=== PATIENT | female | born 1970 | race African-American/Black ===

== ENCOUNTER 2018-07-04 14:21 | Emergency (ER) | payer OTHER ==
[2018-07-04 14:30] VITALS: BP 168/92
--- NOTE | 2018-07-04 14:46 | UC ---
Respiratory Complaint HPI - HPI Summary HPI Summary: Patient is a 47 year old woman, who present today with sinus congestion and headache for past 1 week .she reports that She had a similar episode in May, that resolved with antibiotics/ She has a grandson with similar symptoms and possible sick contacts at work. She measured her temperature at home and last night it was 99.9F. There is some mild cough which is nonproductive. Points to maxillary area where she notices most congestion and pain, avoiding bending. She has been using Sudafed and NyQuil without much relief Denies any chest pain or shortness of breath . Denies any abdominal pain , nausea or vomiting , diarrhea or constipation. - History of Current Complaint Chief Complaint: UCGeneralIllness Stated Complaint: SINUS COMPLAINT Time Seen by Provider: 07/04/18 14:34 Hx Obtained From: Patient Pain Intensity: 3 - Allergies/Home Medications Allergies/Adverse Reactions: Allergies Allergy/AdvReac Type Severity Reaction Status Date / Time No Known Allergies Allergy Verified 07/04/18 14:31 Home Medications: Home Medications Ibuprofen TAB* [Advil TAB*] 400 mg PO Q6H PRN 07/04/18 [History Confirmed ] Nyquil 1 dose PO BEDTIME PRN 07/04/18 [History] Pseudoephedrine HCl [Sudafed] 30 mg PO PRN 07/04/18 [History] PMH/Surg Hx/FS Hx/Imm Hx - Additional Past Medical History Additional PMH: Hypertension, she has been off meds due to lack of insurance Prior sinus infection Previously Healthy: Yes - Surgical History Surgical History: Yes Surgery Procedure, Year, and Place: TOTAL HYSTERECTOMY, after ovaries removed 4 yrs earlier, intestinal repair - Social History Alcohol Use: None Substance Use Type: None Smoking Status (MU): Light Every Day Tobacco Smoker Type: Cigarettes Amount Used/How Often: <1/2 PPD Have You Smoked in the Last Year: Yes Review of Systems All Other Systems Reviewed And Are Negative: Yes Constitutional: Positive: Fever, Fatigue Skin: Positive: Negative Eyes: Positive: Negative ENT: Positive: Sinus Congestion, Sinus Pain/Tenderness - Maxillary and frontal bilaterally, Other - Postnasal drip Respiratory: Positive: Cough Cardiovascular: Positive: Negative Gastrointestinal: Positive: Negative Genitourinary: Positive: Negative Motor: Positive: Negative Neurovascular: Positive: Negative Musculoskeletal: Positive: Negative Neurological: Positive: Headache - Bifrontal Psychological: Positive: Negative Is Patient Immunocompromised?: No Physical Exam - Summary Physical Exam Summary: Physical Exam: Const: Appears well. No signs of apparent distress present. Alert and oriented x 3. Musculo: Walks with a normal gait. Head/Face: Atraumatic, normocephalic on inspection. Eyes: EOMI and PERRLA in both eyes. Conjunctivae clear. No discharge noted ENT: Hearing normal, TM normal appearing bilaterally Bilateral maxillary , frontal and ethmoid sinus tenderness Mild pharyngeal erythema with cobblestoning appearance No enlarged /tender cervical lymph nodes . Respiratory: Respirations are unlabored. Lungs clear to auscultation bilaterally, no wheezing , rhonchi or rales noted . CVS: Regular rate and Rhythm, S1S2 normal , no murmurs identified. Extremities: Peripheral circulation is grossly normal. Pulses 2+ Abdomen : Soft non tender , nondistended , Bowel sounds present . No guarding , rebound tenderness or rigidity noted. Skin: No lesions or rash located on the upper extremities or on the lower extremities. Neuro: Cranial nerves II to XII intact, motor and sensory intact. DTR Intact bilaterally. Mood is normal. Affect is normal. Triage Information Reviewed: Yes Vital Signs: Initial Vital Signs Temp 97.8 F 07/04/18 14:23 Pulse 100 07/04/18 14:23 Resp 20 07/04/18 14:23 BP 168/92 07/04/18 14:23 Pulse Ox 99 07/04/18 14:23 Vital Signs Reviewed: Yes UC Diagnostic Evaluation - Laboratory O2 Sat by Pulse Oximetry: 99 Respiratory Course/Dx - Course Course Of Treatment: During the visit today, we discussed the findings and further plan. I will prescribe the medication to the pharmacy . Since she has not been with the primary care doctor for quite some time and her blood pressure is high, I advised her that she should follow-up with the primary care doctor for her routine health care. Patient expressed understanding . - Differential Dx/Diagnosis Provider Diagnosis: Sinusitis Discharge - Sign-Out/Discharge Documenting (check all that apply): Patient Departure All imaging exams completed and their final reports reviewed: No Studies - Discharge Plan Condition: Stable Disposition: HOME Prescriptions: Amoxicillin/Clavulanate TAB* [Augmentin TAB 875*] 875 mg PO BID 14 Days #28 tab Patient Education Materials: Sinusitis (ED) Referrals: Waldo Faye MD [Primary Care Provider] - 1 Week Additional Instructions: Start taking antibiotics as prescribed. Keep yourself hydrated Steam inhalation is helpful Ibuprofen as needed for fever. Nyquil as needed before bed time. Your blood pressure is high today , please follow up with your primary care doctor for that Return to Urgent Care if symptoms get worse. - Billing Disposition and Condition Condition: STABLE Disposition: Home
== END 2018-07-04 15:11 | disposition home or self-care (01) ==
LOC: UCEAST 14:21
DX: J32.9 Chronic sinusitis, unspecified (principal); F17.210 Nicotine dependence, cigarettes, uncomplicated
CPT/HCPCS: 99202; G0463